=== PATIENT | male | born 1975 | race Two or more races ===

== ENCOUNTER 2021-12-06 12:21 | Emergency (ER) | payer SELFPAY ==
[~2021-12-06] VITALS: Ht 175.3 cm; Wt 84.4 kg
[2021-12-06 13:58] VITALS: BP 108/79
== END 2021-12-06 16:36 | disposition home or self-care (01) ==
LOC: ER 12:21
DX: S40.022A Contusion of left upper arm, initial encounter (principal); X58.XXXA Exposure to other specified factors, initial encounter; Y93.89 Activity, other specified; Y92.89 Other specified places as the place of occurrence of the external cause; Y99.8 Other external cause status
CPT/HCPCS: 73060; 93971